=== PATIENT | male | born 1970 | race Caucasian/White ===

== ENCOUNTER 2016-12-01 06:43 | Day surgery (SDC) | payer OTHER ==
[~2016-12-01 06:43] MED LIST: RINGERS SOLUTION,LACTATED 1,000 ML IV PRN; ceFAZolin SODIUM 1 GM VIAL IV PRN
[2016-12-01] MEDS ORDERED: RINGERS SOLUTION,LACTATED 1,000 ML IV ONE ×2 (07:25→08:35)
[2016-12-01] MEDS ORDERED: ceFAZolin SODIUM 1 GM VIAL IV ONE (08:10)
--- NOTE | 2016-12-01 10:01 | OR ---
Operative Report - Dictated Report Narrative: Date: 12/01/2016 Physician: Dakota Astudillo M.D. Systems Engineer: Benoit Pink PA-C Preoperative diagnosis: Right Shoulder subacromial impingement status post rotator cuff repair Postoperative diagnosis: Right shoulder subacromial impingement status post rotator cuff repair Procedure: Right shoulder arthroscopy with subacromial decompression with acromioplasty, open excision of scar tissue Anesthesia: General plus regional Complications: None Estimated blood loss: Minimal Specimens: Tissue for disposal Retained implants: None Drains: None Indications: Mr. Chinchilla Is a 46 year-old gentleman who has been followed in my clinic with complaints of shoulder pain consistent pain, clunking, impingement after undergoing rotator cuff repair. He had an MRI which showed his rotator cuff is healed. Persistent catching and pain. Physical exam and diagnostic imaging were consistent with his complaints and concern for subacromial impingement. Conservative measures have failed including, but not limited to, passage of time , activity modification, medications, physical therapy/home exercise program, or injections. The risks, benefits, and alternatives were discussed in clinic. The risks being , bleeding, infection, blood clots, nerve, tendon, ligament, blood vessel injury, persistent pain, arthrosis, stiffness, need for prolonged therapy, need for additional procedures, and persistent symptoms. Consent was obtained in the clinic. Procedure: After marking the correct extremity in the preoperative holding area, a timeout was performed in the operating room. IV antibiotics consisting of Ancef were administered prior to the procedure. A general followed by regional anesthetic was induced by the nurse roller engraver. This was in the supine position, then the patient was transitioned to a beachchair position with all bony prominences well-padded, head in neutral, the nonoperative arm well supported, and the legs padded with SCDs in place. The operative shoulder was then prepped and draped in a standard sterile fashion. Preoperatively the shoulder had full passive range of motion, and stability. We were able to re-create his clunking and catching with passive range of motion. After marking out the bony landmarks, saline was infused into the joint through a posterior lateral portal site. A eli incision was made, and the blunt trocar and cannula was introduced into the shoulder joint. An accessory portal was placed in the rotator cuff interval using a spinal needle for guidance. Upon initial evaluation, the biceps tendon showed signs of prior tenotomy. The middle glenohumeral ligament was intact. Subscapularis tendon was and unremarkable. The glenoid showed minimal degenerative change. The humeral head articular surface showed minimal degenerative change. The anterior labrum was small but intact. The superior labrum was unremarkable. The pouch was unremarkable. The posterior labrum was unremarkable. The supraspinatus tendon was intact without any signs of new tear. The infraspinatus tendon was unremarkable. Attention was then turned to the subacromial space. Subacromial bursectomy was performed utilizing the prior portals. The coracoacromial ligament was frayed. The bursal side of the rotator cuff demonstrated no tear. The acromial arch demonstrated chondral vacs prominence anterior lateral bony spur consistent with his MRI and x-rays. Utilizing a lateral portal a subacromial bursectomy was performed. The acromion was skeletonized. A bur was utilized in order to resect approximately 5-7 mm of bone off the anterior and lateral aspect of the acromion resulting in a flattening of the overall contour. There is a notable flap of soft tissues which was not the rotator cuff but was thick and hard similar to the calcified tissue or heterotopic bone which was attempted to be debrided and shaved arthroscopically however it was not able to be removed completely resected and thus utilizing the prior rotator cuff repair incision the prominent scar tissue and calcified mass was excised. After performing this, shoulder was ranged and had resolution of its catching and clunking. This was done in open fashion secondary to a size and the thickness of this tissue. It was then visualized as well as palpated and noted to be a smooth contour with an intact rotator cuff after this. The wounds were thoroughly irrigated. 3-0 Vicryl was placed in the subcutaneous tissue. The rotator cuff incision as well as the portal sites were closed with interrupted nylon. Dressings consisting of Xeroform, 4 x 4, ABD, soft roll, and tape were applied. All sponge, needle, blade, and instrument counts were correct prior to closing the wounds. The patient was awoken and transferred to the postanesthesia care unit in stable condition.
[2016-12-01 12:41] VITALS: BP 145/91
== END 2016-12-01 06:44 | disposition home or self-care (01) ==
LOC: AMB 06:43
PROVIDERS: ATTEND Orthopaedic Surgery
PROC: 0XB20ZZ Excision of Right Shoulder Region, Open Approach (ICD-10-PCS; 2016-12-01)
PROC: 0RBJ4ZZ Excision of Right Shoulder Joint, Percutaneous Endoscopic Approach (ICD-10-PCS; 2016-12-01)
PROC: 0RNJ4ZZ Release Right Shoulder Joint, Percutaneous Endoscopic Approach (ICD-10-PCS; principal; 2016-12-01 07:55)
DX: M75.41 Impingement syndrome of right shoulder (principal); Z68.38 Body mass index [BMI] 38.0-38.9, adult; M96.89 Other intraoperative and postprocedural complications and disorders of the musculoskeletal system; R22.31 Localized swelling, mass and lump, right upper limb